=== PATIENT | male | born 1960 | race Caucasian/White ===

== ENCOUNTER → 2018-02-09 08:06 | Outpatient (CLI) | payer BC, SELFPAY ==
[2018-02-09 08:55] LABS: Hemoglobin A1C% w Est Avg Glu 6.4 % (4.0-6.0)
[2018-02-09 09:33] LABS: Creatinine Urine Random 118.7 mg/dL
[2018-02-09 09:37] LABS: Alanine Aminotransferase 41 IU/L (21-72); Albumin 3.9 g/dL (3.5-5.0); Albumin Globulin Ratio 1.6 (1.0-2.8); Alkaline Phosphatase 60 U/L (38-126); Aspartate Aminotransferase 25 IU/L (17-59); BUN Creatinine Ratio 21.3 (6-22); Bilirubin Total 0.6 mg/dL (0.2-1.3); Blood Urea Nitrogen 17 mg/dL (9-20); Calcium 9.8 mg/dL (8.4-10.2); Carbon Dioxide 28 mmol/L (22-32); Chloride 105 mmol/L (98-107); Cholesterol 154 mg/dL (140-199); Estimated Glomerular Filt Rate > 60.0 mL/min (>60); Globulin 2.4 g/dL (1.7-4.1); Glucose 138 mg/dL (70-100); HDL Cholesterol 41 mg/dL (40-60); HEMOLYSIS < 15 (0-50); LDL Cholesterol Calculated 65 mg/dL (<100); Potassium 4.5 mmol/L (3.4-5.1); Sodium 141 mmol/L (137-145); Total Protein 6.3 g/dL (6.3-8.2); Triglycerides 240 mg/dL (35-150)
[2018-02-09 09:38] LABS: Microalbumi Creatinin Ratio Ur 21.9 ug/mg CR (<30); Microalbumin Urine Random 2.6 mg/dL (0-1.6)
[2018-02-09 10:06] LABS: Prostate Specific Antigen Scrn 1.43 ng/mL (0.1-4.0)
== END ==
PROVIDERS: Family Provider Physician Assistant; PCP Physician Assistant; Visit Provider Physician Assistant
DX: I10 Essential (primary) hypertension (principal); R73.02 Impaired glucose tolerance (oral); E78.2 Mixed hyperlipidemia; Z12.5 Encounter for screening for malignant neoplasm of prostate
CPT/HCPCS: 36415; 80053; 80061; 82043; 82570; 83036; G0103

== ENCOUNTER → 2018-04-28 12:24 | Outpatient (CLI) | payer BC, SELFPAY ==
[2018-04-28 13:03] LABS: Hemoglobin A1C% w Est Avg Glu 6.7 % (4.0-6.0)
== END ==
PROVIDERS: Family Provider Physician Assistant; PCP Physician Assistant; Visit Provider Physician Assistant
DX: R73.02 Impaired glucose tolerance (oral) (principal)
CPT/HCPCS: 36415; 83036

== ENCOUNTER → 2018-09-07 11:47 | Outpatient (CLI) | payer OTHER, SELFPAY ==
[2018-09-07 13:06] LABS: Hemoglobin A1C% w Est Avg Glu 6.4 % (4.0-6.0)
== END ==
PROVIDERS: Family Provider Physician Assistant; PCP Physician Assistant; Visit Provider Physician Assistant
DX: R73.02 Impaired glucose tolerance (oral) (principal); Z83.3 Family history of diabetes mellitus
CPT/HCPCS: 36415; 83036

== ENCOUNTER → 2019-07-07 07:03 | Outpatient (CLI) | payer BC, SELFPAY ==
[2019-07-07 08:03] LABS: Hematocrit 42.3 % (41-53); Hemoglobin 14.5 g/dL (13.5-17.5)
[2019-07-07 08:14] LABS: Alanine Aminotransferase 40 IU/L (<50); Albumin 4.4 g/dL (3.5-5.0); Albumin Globulin Ratio 1.8 (1.0-2.8); Alkaline Phosphatase 59 U/L (38-126); Aspartate Aminotransferase 36 IU/L (17-59); BUN Creatinine Ratio 22.5 (6-22); Bilirubin Total 1.3 mg/dL (0.2-1.3); Blood Urea Nitrogen 18 mg/dL (9-20); Calcium 9.7 mg/dL (8.4-10.2); Carbon Dioxide 26 mmol/L (22-32); Chloride 101 mmol/L (98-107); Cholesterol 220 mg/dL (140-199); Estimated Glomerular Filt Rate > 60.0 mL/min (>60); Globulin 2.5 g/dL (1.7-4.1); Glucose 143 mg/dL (80-110); HDL Cholesterol 51 mg/dL (40-60); HEMOLYSIS < 15 (0-50); LDL Cholesterol Calculated 117 mg/dL (<100); Potassium 4.2 mmol/L (3.4-5.1); Sodium 137 mmol/L (137-145); Total Protein 6.9 g/dL (6.3-8.2); Triglycerides 259 mg/dL (35-150)
[2019-07-07 08:29] LABS: Hemoglobin A1C% w Est Avg Glu 6.5 % (4.0-6.0)
[2019-07-07 08:59] LABS: Creatinine Urine Random 171.2 mg/dL
[2019-07-07 09:03] LABS: Microalbumi Creatinin Ratio Ur 5.2 ug/mg CR (<30); Microalbumin Urine Random 0.9 mg/dL (0-1.6)
== END ==
PROVIDERS: PCP Physician Assistant; Visit Provider Physician Assistant
DX: Z01.818 Encounter for other preprocedural examination (principal); E78.2 Mixed hyperlipidemia; I10 Essential (primary) hypertension; R73.02 Impaired glucose tolerance (oral); R06.09 Other forms of dyspnea
CPT/HCPCS: 36415; 80053; 80061; 82043; 82570; 83036; 84443; 85014; 85018

== ENCOUNTER → 2019-07-15 10:52 | Outpatient (CLI) | payer BC, SELFPAY ==
--- NOTE | 2019-07-20 11:04 | PM.PFT.1 ---
Pulmonary Function Test Referral & Results Date Patient Seen: 07/15/19 Requesting provider: Jodi Hernández Results: The spirometry demonstrates an FVC of 2.06 L which is 48% of predicted. The FEV1 was measured at 1.69 L which is 52% of predicted. The FEV1/FVC ratio was 82 which is 100 a% of predicted. Following the administration of bronchodilator there was no appreciable change. Lung volumes show an SVC of 2.41 L which is 56% of predicted. The diffusing capacity was measured at 19.53 which is 69% of predicted. No hemoglobin value was provided, so no correction for potential anemia could be made, if appropriate. The maximum voluntary ventilation was reduced Interpretation: This study demonstrates moderate obstructive lung disease based on reduction in FEV1 without evidence of benefit following bronchodilator administration There is also moderate restrictive lung disease present based on reduction SVC There is also a notable reduction in diffusing capacity suggesting significant disease at the capillary alveolar level Given the degree of restrictive lung disease present with an increased FEV1/FVC ratio suggest interstitial lung disease Clinical correlation suggested
== END ==
PROVIDERS: PCP Physician Assistant; Visit Provider Physician Assistant
DX: J98.8 Other specified respiratory disorders (principal); R06.09 Other forms of dyspnea
CPT/HCPCS: 94060; 94726; 94729

== ENCOUNTER → 2019-08-15 08:38 | Outpatient (CLI) | payer BC, SELFPAY ==
--- NOTE | 2019-08-15 08:41 | DI.CT.S_ITS ---
PROCEDURE: CT CHEST WO CON INDICATIONS: Abnormal PFTs Remote hx of sarcoidosis TECHNIQUE: Noncontrast 5 mm thick sections acquired from the pulmonary apices to the posterior costophrenic angles. 1 mm lung window, 5 mm thick coronal and sagittal and 7 mm axial MIP reformats were then acquired. For radiation dose reduction, the following was used: automated exposure control, adjustment of mA and/or kV according to patient size. COMPARISON: None. FINDINGS: Image quality: Excellent. Lungs and pleura: Minimal subpleural groundglass opacity at the right lung base, (3/223). No pleural effusions or pneumothorax. Central and peripheral airways are patent and normal in caliber. Mediastinum: Heart size is normal. LAD coronary artery calcifications identified. No pericardial effusion. No mediastinal adenopathy by size criteria. No calcified nodes. Ascending thoracic aorta measures approximately 4 cm. Pulmonary arteries are within normal limits. Left common carotid artery originates off of the right brachiocephalic artery, variant. Esophagus is normal in caliber. No hiatal hernia. Bones and chest wall: No suspicious bony lesions. No vertebral body compression fractures. No axillary or supraclavicular adenopathy by size criteria. Thyroid gland is unremarkable. Abdomen: Visualized upper abdominal solid organs and bowel loops appear normal in the absence of contrast. IMPRESSION: 1. Minimal subpleural groundglass opacity in the right lower lobe. 2. No mediastinal adenopathy identified. 3. Ascending thoracic aorta aneurysm measuring 4 cm. 4. Coronary artery calcifications. Dictated by: Ernie Avina M.D. on 08/15/2019 at 10:14 Approved by: Ernie Avina M.D. on 08/15/2019 at 10:21
== END ==
PROVIDERS: PCP Physician Assistant; Referring Provider Physician Assistant; Visit Provider Physician Assistant
DX: R94.2 Abnormal results of pulmonary function studies (principal); I25.10 Atherosclerotic heart disease of native coronary artery without angina pectoris; I71.2 Thoracic aortic aneurysm, without rupture; Z86.2 Personal history of diseases of the blood and blood-forming organs and certain disorders involving the immune mechanism
CPT/HCPCS: 71250

== ENCOUNTER → 2019-08-23 14:05 | Outpatient (CLI) | payer BC, SELFPAY ==
[2019-08-23 15:08] LABS: Appearance Urine UA CLEAR; Bilirubin Urine UA NEGATIVE (NEGATIVE); Color Urine UA YELLOW; Glucose Urine UA NEGATIVE (Negative); Ketones Urine UA NEGATIVE (NEGATIVE); Leukocyte Esterase Urine UA NEGATIVE (NEGATIVE); Nitrite Urine UA NEGATIVE (Negative); Occult Blood Urine UA NEGATIVE (Negative); Protein Urine UA NEGATIVE (Negative); Urobilinogen Urine UA 0.2 E.U./dL (0.2); pH Urine UA 6.5 (4.5-8.0)
[2019-08-23 16:24] LABS: Add Manual Diff / Slide Review NO; Basophils Absolute Auto 0 /uL (0-100); Basophils Percent Auto 0.5 % (0-2); Eosinophils Absolute Auto 100 /uL (0-450); Eosinophils Percent Auto 2.1 % (2-4); Hemoglobin 14.2 g/dL (13.5-17.5); Lymphocytes Absolute Auto 1200 /uL (1100-4500); Lymphocytes Percent Auto 21.6 % (25-40); Mean Corpuscular HGB Conc 33.9 % (30-36); Mean Corpuscular Hemoglobin 31.8 PG (26-34); Mean Corpuscular Volume 93.9 fL (80-100); Monocytes Absolute Auto 500 /uL (0-900); Monocytes Percent Auto 8.3 % (3-14); Neutrophils Absolute Auto 3900 /uL (1500-7000); Neutrophils Percent Auto 67.5 % (50-75); Platelet Count 251 X10^3/uL (150-400); Red Blood Cell Count 4.48 X10^6/uL (4.5-5.9); Red Cell Distribution Width 13.2 % (11.6-14.8); White Blood Cell Count 5.8 X10^3/uL (4.5-11.0)
[2019-08-23 16:36] LABS: Alanine Aminotransferase 39 IU/L (<50); Albumin 4.5 g/dL (3.5-5.0); Albumin Globulin Ratio 1.6 (1.0-2.8); Alkaline Phosphatase 54 U/L (38-126); Aspartate Aminotransferase 36 IU/L (17-59); BUN Creatinine Ratio 26.3 (6-22); Bilirubin Total 0.8 mg/dL (0.2-1.3); Blood Urea Nitrogen 21 mg/dL (9-20); Calcium 10.1 mg/dL (8.4-10.2); Carbon Dioxide 27 mmol/L (22-32); Chloride 105 mmol/L (98-107); Cholesterol 190 mg/dL (140-199); Estimated Glomerular Filt Rate > 60.0 mL/min (>60); Globulin 2.9 g/dL (1.7-4.1); Glucose 108 mg/dL (80-110); HDL Cholesterol 49 mg/dL (40-60); HEMOLYSIS < 15 (0-50); LDL Cholesterol Calculated 81 mg/dL (<100); Potassium 3.8 mmol/L (3.4-5.1); Sodium 142 mmol/L (137-145); Total Protein 7.4 g/dL (6.3-8.2); Triglycerides 298 mg/dL (35-150)
[2019-08-23 16:38] LABS: Hemoglobin A1C% w Est Avg Glu 6.5 % (4.0-6.0)
[2019-08-23 17:22] LABS: Thyroid Stimulating Hormone 2.17 uIU/mL (0.47-4.68)
== END ==
PROVIDERS: PCP Physician Assistant
DX: I10 Essential (primary) hypertension (principal); Z83.3 Family history of diabetes mellitus; E78.2 Mixed hyperlipidemia
CPT/HCPCS: 36415; 80053; 80061; 81003; 83036; 84443; 85025

== ENCOUNTER → 2020-01-23 16:06 | Outpatient (CLI) | payer BC, SELFPAY ==
[2020-01-24 20:33] LABS: COVID19 Sendout Not Detected (Not Detect)
== END ==
PROVIDERS: PCP Physician Assistant; Visit Provider Physician Assistant
DX: Z01.812 Encounter for preprocedural laboratory examination (principal)
CPT/HCPCS: 87635

== ENCOUNTER → 2020-01-29 08:55 | Outpatient (CLI) | payer BC, SELFPAY ==
[2020-01-30 20:32] LABS: COVID19 Sendout Not Detected (Not Detect)
== END ==
PROVIDERS: PCP Physician Assistant; Visit Provider Nurse Practitioner
DX: Z11.59 Encounter for screening for other viral diseases (principal)
CPT/HCPCS: 87635

== ENCOUNTER → 2020-02-02 08:16 | Outpatient (CLI) | payer BC, SELFPAY ==
[2020-02-02 09:31] LABS: Cholesterol 158 mg/dL (140-199); HDL Cholesterol 56 mg/dL (40-60); LDL Cholesterol Calculated 55 mg/dL (<100); Triglycerides 236 mg/dL (35-150)
== END ==
PROVIDERS: PCP Family Medicine; Referring Provider Internal Medicine Cardiovascular Disease; Visit Provider Internal Medicine Cardiovascular Disease
DX: E78.5 Hyperlipidemia, unspecified (principal)
CPT/HCPCS: 36415; 80061

== ENCOUNTER → 2020-09-12 08:58 | Outpatient (CLI) | payer BC, SELFPAY ==
[2020-09-12] MEDS: COVID-19 VACC #1, MRNA(MOD) 100 MCG/0.5 ML VIAL IM (09:12)
== END ==
PROVIDERS: PCP Family Medicine; Visit Provider Internal Medicine
DX: Z23 Encounter for immunization (principal)
CPT/HCPCS: 0011A; 91301

== ENCOUNTER → 2020-10-10 08:34 | Outpatient (CLI) | payer BC, SELFPAY ==
[2020-10-10] MEDS: COVID-19 VACC #2, MRNA(MOD) 100 MCG/0.5 ML VIAL IM (08:44)
== END ==
PROVIDERS: PCP Family Medicine; Referring Provider Internal Medicine; Visit Provider Internal Medicine
DX: Z23 Encounter for immunization (principal)
CPT/HCPCS: 0012A; 91301

== ENCOUNTER → 2021-02-21 07:31 | Outpatient (CLI) | payer BC, SELFPAY ==
[2021-02-21 08:11] LABS: Add Manual Diff / Slide Review NO; Basophils Absolute Auto 0 /uL (0-100); Basophils Percent Auto 0.5 % (0-2); Eosinophils Absolute Auto 200 /uL (0-450); Eosinophils Percent Auto 2.7 % (2-4); Hematocrit 44.2 % (41-53); Hemoglobin 14.6 g/dL (13.5-17.5); Lymphocytes Absolute Auto 1500 /uL (1100-4500); Lymphocytes Percent Auto 22.4 % (25-40); Mean Corpuscular HGB Conc 32.9 % (30-36); Mean Corpuscular Hemoglobin 30.4 PG (26-34); Mean Corpuscular Volume 92.2 fL (80-100); Monocytes Absolute Auto 500 /uL (0-900); Monocytes Percent Auto 7.7 % (3-14); Neutrophils Absolute Auto 4600 /uL (1500-7000); Neutrophils Percent Auto 66.7 % (50-75); Platelet Count 265 X10^3/uL (150-400); Red Blood Cell Count 4.79 X10^6/uL (4.5-5.9); Red Cell Distribution Width 13.1 % (11.6-14.8); White Blood Cell Count 6.8 X10^3/uL (4.5-11.0)
[2021-02-21 09:02] LABS: BUN Creatinine Ratio 24.7 (6-22); Blood Urea Nitrogen 19 mg/dL (9-20); Calcium 9.6 mg/dL (8.4-10.2); Carbon Dioxide 25 mmol/L (22-32); Chloride 106 mmol/L (98-107); Cholesterol 131 mg/dL (140-199); Estimated Glomerular Filt Rate > 60.0 mL/min (>60); Glucose 165 mg/dL (80-110); HDL Cholesterol 51 mg/dL (40-60); HEMOLYSIS < 15 (0-50); LDL Cholesterol Calculated 49 mg/dL (<100); Potassium 4.5 mmol/L (3.4-5.1); Sodium 138 mmol/L (137-145); Triglycerides 153 mg/dL (35-150)
== END ==
PROVIDERS: Internal Medicine Cardiovascular Disease; PCP Family Medicine; Referring Provider Internal Medicine Nephrology; Visit Provider Internal Medicine Nephrology
DX: E78.5 Hyperlipidemia, unspecified (principal); I10 Essential (primary) hypertension
CPT/HCPCS: 36415; 80048; 80061; 85025

== ENCOUNTER → 2021-02-26 13:39 | Outpatient (CLI) | payer BC, SELFPAY ==
--- NOTE | 2021-02-26 | DI.ECHO.S_ITS ---
[place]---------[facility] +---------+ : : [address] : : : : [id number] : : : : Phone: [phone]---------+ Echocardiogram Report + + :Name: JOSE WALSH Study Date: 02/26/2021 Height: 66 in : :[facility] ReadingLocation: Weight: 165 lb : : Gender: Male BSA: 1.8 m2 : :: 1960 Age: 60 yrs BP: 162/97 mmHg: :Reason For Study: DISORDERS OF ARTERIES AND ARTERIOLS : :Ordering Physician: BO, : :ITZ Performed By: Willow Herrera : :Referring: ITZ ELDRIDGE : + + Interpretation Summary 1) Normal left ventricular thickness, size, wall motion, and systolic function (EF 55-60%). 2) Normal right ventricular size and function. 3) There is mild aortic stenosis (mean gradient 11mmHg, valve area 1.4cm2, severity ratio 0.44). 4) The ascending aorta is mild-moderately enlarged. 5) Hypertension present during the study (BP 162/97mmHg). 6) No prior Echo available for comparison. Procedure: A two-dimensional transthoracic echocardiogram with color flow and Doppler was performed. The study quality was technically adequate. There is no prior echocardiogram noted for this patient. The patient was in sinus rhythm with heart rates between 54-65 bpm during the exam. Left Ventricle: The left ventricle is normal in size and wall thickness. The ejection fraction is estimated to be 55-60%. Left ventricular systolic function appears normal without focal wall motion abnormalities. Diastolic parameters suggest probable normal left ventricular diastolic function and normal filling pressures. Right Ventricle: The right ventricle is normal in size and function. Atria: The left atrial size is normal. Right atrial size is normal. There is no Doppler evidence for an interatrial shunt. Mitral Valve: The mitral valve is normal in structure and function. There is trace mitral regurgitation. Aortic Valve: The aortic valve is not well visualized. There is mild aortic stenosis. The peak aortic velocity is 2.2 m/sec. The aortic valve mean gradient is 11 mmHg. The calculated aortic valve area is 1.4 cm2. No aortic regurgitation is present. Tricuspid Valve: The tricuspid valve is normal in structure and function. No tricuspid regurgitation. Pulmonary artery pressures cannot be estimated because of the lack of a measurable TR jet velocity but the IVC suggests a CVP of around 3 mmHg. Pulmonic Valve: The pulmonic valve leaflets are thin and pliable; valve motion is normal. There is mild pulmonic regurgitation. Great Vessels: The ascending aorta is mild-moderately enlarged. The IVC is of normal diameter and collapses greater than 50% with a sniff. This suggests a low right atrial pressure of 3 mm Hg. Pericardium/ Pleura There is no pericardial effusion. There is no pleural effusion. MMode/2D Measurements & Calculations LVIDd: 4.8 cm LVOT diam: 2.0 cm LVIDs: 3.2 cm asc Aorta Diam: 4.0 cm FS: 34.6 % Ao Arch Diam (Prox Trans): 3.0 cm IVSd: 1.0 cm LVPWd: 0.93 cm LV akins. diameter/BSA (cm/m^2): 2.6 LV sys. diameter/BSA (cm/m^2): 1.7 LA A2 area: 22.6 cm2 RA long axis: 4.9 cm LA A4 area: 17.6 cm2 RA area: 13.8 cm2 LA length (vol): 5.5 cm RA vol: 33.4 ml LA vol: 61.5 ml RA : 18.1 ml/m2 LA vol index: 33.3 ml/m2 IVC diam: 1.8 cm RVD1 (basal): 3.8 cm TAPSE: 2.4 cm Doppler Measurements & Calculations Ao V2 max: 221.5 cm/sec LVOT Max Eric: 96.9 cm/sec Ao V2 mean: 153.2 cm/sec LV V1 max P.8 mmHg Ao max P.5 mmHg LV V1 VTI: 20.7 cm Ao mean P.8 mmHg FRANNIE(I,D): 1.4 cm2 Ao V2 VTI: 46.8 cm FRANNIE(V,D): 1.4 cm2 sev ratio: 0.44 FRANNIE indexed to BSA (cm^2/m^2): 0.78 MV E max eric: 90.7 cm/sec PA V2 max: 117.6 cm/sec MV A max eric: 74.1 cm/sec PA V2 mean: 87.9 cm/sec MV E/A: 1.2 PA mean P.4 mmHg Med Peak E' Eric: 9.0 cm/sec PA pr(Accel): 27.6 mmHg E/E' med: 10.1 Lat Peak E' Eric: 9.9 cm/sec E/E' lat: 9.1 E/e' average: 9.6 MV dec time: 0.16 sec SV(LVOT): 67.7 ml Reading Physician:03:15 PM
== END ==
PROVIDERS: PCP Family Medicine; Referring Provider Internal Medicine Cardiovascular Disease; Visit Provider Internal Medicine Cardiovascular Disease
DX: I35.0 Nonrheumatic aortic (valve) stenosis (principal); I37.1 Nonrheumatic pulmonary valve insufficiency; I77.89 Other specified disorders of arteries and arterioles
CPT/HCPCS: 93306

== ENCOUNTER → 2021-09-05 08:15 | Outpatient (CLI) | payer BC, SELFPAY ==
[2021-09-05 10:36] LABS: Hemoglobin A1C% w Est Avg Glu 7.6 % (4.0-6.0)
[2021-09-05 10:44] LABS: Alanine Aminotransferase 86 IU/L (<50); Albumin 4.1 g/dL (3.5-5.0); Albumin Globulin Ratio 1.9 (1.0-2.8); Alkaline Phosphatase 53 U/L (38-126); Aspartate Aminotransferase 54 IU/L (17-59); BUN Creatinine Ratio 16.9 (6-22); Bilirubin Total 0.7 mg/dL (0.2-1.3); Blood Urea Nitrogen 12 mg/dL (9-20); Calcium 9.6 mg/dL (8.4-10.2); Carbon Dioxide 30 mmol/L (22-32); Chloride 106 mmol/L (98-107); Cholesterol 118 mg/dL (140-199); Estimated Glomerular Filt Rate > 60.0 mL/min (>60); Globulin 2.2 g/dL (1.7-4.1); Glucose 155 mg/dL (80-110); HDL Cholesterol 46 mg/dL (40-60); HEMOLYSIS < 15 (0-50); LDL Cholesterol Calculated 53 mg/dL (<100); Potassium 4.4 mmol/L (3.4-5.1); Sodium 139 mmol/L (137-145); Total Protein 6.3 g/dL (6.3-8.2); Triglycerides 97 mg/dL (35-150)
== END ==
PROVIDERS: PCP Family Medicine; Referring Provider Family Medicine; Visit Provider Family Medicine
DX: Z00.00 Encounter for general adult medical examination without abnormal findings (principal); E78.2 Mixed hyperlipidemia; Z83.3 Family history of diabetes mellitus; R73.02 Impaired glucose tolerance (oral)
CPT/HCPCS: 36415; 80053; 80061; 83036

== ENCOUNTER → 2021-09-16 08:58 | Outpatient (CLI) | payer BC, SELFPAY ==
[2021-09-16 11:21] LABS: COVID19 -Nasal RAPID Negative (Negative)
== END ==
PROVIDERS: PCP Family Medicine; Visit Provider Surgery
DX: Z01.812 Encounter for preprocedural laboratory examination (principal); Z20.822 Contact with and (suspected) exposure to COVID-19
CPT/HCPCS: 87635; C9803

== ENCOUNTER 2021-09-17 12:39 | Day surgery (SDC) | payer BC, SELFPAY ==
[2021-09-17 13:06] VITALS: BP 123/82; PULSE 82; RESP 15; TEMP 36.6; O2SAT 98; BMI 26.1
[2021-09-17] MEDS: LACTATED RINGERS 1,000 ML 200 ML IV (13:16)
--- NOTE | 2021-09-17 14:23 | PM.HP.1 ---
History of Present Illness History of Present Illness Date Patient Seen: 09/17/21 Time Patient Seen: 14:23 Chief complaint: SDC Narrative: The patient presents for colorectal sreening. They have never had any previous examination for such. No personal or family history of colon cancer. On further history denies any recent gastrointestinal symptoms. No nausea, vomiting, abdominal pain, loss of appetite, unexplained weight loss, change in bowel habits, diarrhea, constipation, melena, hematochezia, or bright red blood per rectum. Patient History Medical History Abdominal hernia Ankle fracture, left (03/2017) Kaufman's palsy Congenital heart defect Epidermal cyst Folliculitis Glucose intolerance Hyperlipemia Hypertension Osteoarthritis Preventative health care Sarcoidosis Ventral hernia Surgical History Hx of heart surgery (1957) Hx of hernia repair (1983) Hx of shoulder surgery (04/2012) Family & Social History Family History Father Essential hypertension History of diabetes mellitus, type II Mother Essential hypertension History of diabetes mellitus, type II Social History: household members spouse Tobacco & Substance use: Smoking Status Never smoker alcohol intake current Substance Use Type does not use Meds Home Medications and Allergies Home Medications Medication Instructions Recorded Confirmed Type aspirin 81 mg tablet,delayed 81 mg PO QDAY #0 02/19/17 09/03/21 History release rosuvastatin 40 mg tablet 40 mg PO DAILY #90 tab 03/19/20 09/03/21 Rx mupirocin 2 % topical ointment 1 applic TOPICAL BID #15 g 09/19/20 09/03/21 Rx hydralazine 25 mg tablet 25 mg PO TID #270 tab 04/29/21 09/03/21 Rx amlodipine 5 mg tablet (Norvasc) 5 mg PO BID #180 tab 05/13/21 09/17/21 Rx lisinopril 20 mg tablet 20 mg PO BID #180 tab 05/13/21 09/03/21 Rx sodium,potassium,mag sulfates 17.5 See Rx Instructions PO .COMPLEX 09/10/21 Rx gram-3.13 gram-1.6 gram oral soln #354 ml (Suprep Bowel Prep Kit) Allergies Allergy/AdvReac Type Severity Reaction Status Date / Time Penicillins [PENICILLINS] Allergy Intermediate RASH Verified 09/03/21 13:58 Cephalosporins Allergy Mild RASH Verified 09/03/21 13:58 [CEPHALOSPORINS] Sulfa (Sulfonamide Allergy Mild PATIENT Verified 09/03/21 13:58 Antibiotics) CAN'T [SULFA (SULFONAMIDE REMEMBER ANTIBIOTICS)] Exam Vital Signs (past 8 hours): - 09/17/21 13:06 Temperature 98 F Pulse Rate 82 Respiratory Rate 15 Blood Pressure 123/82 Pulse Oximetry 98 Oxygen Delivery Method Room Air Narrative Exam Narrative: GENERAL: Adult male in no apparent distress HEENT: No scleral icterus CV: Regular rate, no peripheral edema LUNGS: No increased work of breathing. Patient speaks in full sentences without oxygen support. ABDOMEN: Soft, non-tender, non-distended NEURO: Nonfocal, normal strength throughout, SKIN: Warm and dry Assessment & Plan Assessment & Plan narrative: The patient requires colorectal screening and colonoscopy is recommended. Technical details were discussed. Risks, benefits, alternatives explained. Risks including but not limited to myocardial infarction, aspiration, bleeding, pain, missed lesion, incomplete examination, need for further radiographic studies, colonic perforation, and need for major abdominal surgery were discussed. All questions were answered to their satisfaction, and they are in agreement with this plan.. Time Spent With Patient Critical Care time: I spent a total of [] minutes of critical care time on this patient's care today; this time is exclusive of procedural time.
--- NOTE | 2021-09-17 14:46 | PM.OP.COLON ---
Operative Date/Time/Diagnoses Date of procedure: 09/17/21 Time of procedure: 14:46 Pre-op diagnosis: Screening colonoscopy Post-op diagnosis: same Procedure & Clinicians Study performed: Colonoscopy Same procedure as scheduled: Yes Indications: Screening Surgeon: Wes Chen Procedure Notes Procedure in detail: Medications: Conscious sedation using 5 mg IV midazolam and 100 mcg IV of fentanyl The history and physical was performed/updated and the patient is ASA class is 2. The procedure was discussed in detail with the patient. Potential risks complications including infection, bleeding, missed diagnosis, perforation, need for surgery, and were explained. Their questions were answered and informed consent was obtained. Patient was brought to the procedure room and placed standard monitoring equipment. The patient's vital signs were monitored continuously throughout the entire procedure. Prior to starting time-out was performed. The patient was placed in the left lateral recumbent position. Procedural sedation was administered. Examination began with a thorough inspection of the perianal area there was no evidence of fissures, fistulae, external hemorrhoids or cutaneous malignancy. The colonoscopy scope was then placed into the anal canal and was advanced to the cecum, which was identified by the ileocecal valve, the appendiceal orifice and the confluence of the taenia. The scope was then slowly withdrawn examining colon thoroughly in all directions, irrigating it of any residual stool. FINDINGS 1. Normal healthy colon 2. No masses or polyps 3. Grade 1 internal hemorrhoids 4. Sigmoid diverticulosis The patient tolerated the procedure well. They will be discharged once criteria are met. The prep was of good/excellent quality. The withdrawl time was 6minutes. The sedation time was 15minutes. Specimen(s): none sent Complications: none Impression: Normal Post-procedure Recommendations: Colonoscopy in 10 years Disposition: same day surgery
[2021-09-17] MEDS: MIDAZOLAM 5 MG/5 ML VIAL IV (14:48)
[2021-09-17] MEDS: fentaNYL 250 MCG/5 ML INJ IV (14:48)
[2021-09-17 14:50] VITALS: BP 112/83; PULSE 68; RESP 12; TEMP 36.7; O2SAT 95
[2021-09-17 14:55] VITALS: BP 113/75; PULSE 62; RESP 12; O2SAT 94
[2021-09-17 15:00] VITALS: BP 117/72; PULSE 68; RESP 12; O2SAT 94
[2021-09-17 15:05] VITALS: BP 131/75; PULSE 75; RESP 18; O2SAT 96
[2021-09-17 15:22] VITALS: BP 129/86; PULSE 68; RESP 18; TEMP 36.6; O2SAT 98
== END 2021-09-17 15:35 | disposition home or self-care (01) ==
PROVIDERS: PCP Family Medicine; Referring Provider Surgery; Visit Provider Surgery
PROC: 0DJD8ZZ Inspection of Lower Intestinal Tract, Via Natural or Artificial Opening Endoscopic (ICD-10-PCS; CPT 45378; principal; 2021-09-17 14:30)
DX: Z12.11 Encounter for screening for malignant neoplasm of colon (principal); K57.30 Diverticulosis of large intestine without perforation or abscess without bleeding; K64.0 First degree hemorrhoids
CPT/HCPCS: 45378; 99152; J2250; J3010

== ENCOUNTER → 2022-02-10 13:36 | Outpatient (CLI) | payer BC, SELFPAY ==
--- NOTE | 2022-02-10 | DI.ECHO.S_ITS ---
[place] +---------+ [facility] +---------+ : : [address] : [address] : : : : [id number] : : : : Phone: [phone] +---------+ Echocardiogram Report + + :Name: JOSE WALSH Study Date: 02/10/2022 Height: 66.5 in: :[facility] ReadingLocation: Weight: 160 lb : : Gender: Male BSA: 1.8 m2 : :: 1960 Age: 61 yrs BP: 146/85 mmHg: :Reason For Study: AORTIC STENOSIS : :Ordering Physician: BO, : :ITZ Performed By: Willow Herrera : :Referring: ITZ ELDRIDGE : + + Interpretation Summary 1) Normal left ventricular thickness, size, wall motion, and systolic function (EF 60-65%). 2) Normal right ventricular size and function. 3) There is mild aortic stenosis (mean gradient 18mmHg, valve area 1.4cm2, severity ratio 0.35). 4) There is mild aortic regurgitation. 5) The ascending aorta is mildly enlarged at 4.0cm. 6) Compared to the Echo done 02/26/2021, mild aortic regurgitation is present. Procedure: A two-dimensional transthoracic echocardiogram with color flow and Doppler was performed. The study quality was technically adequate. Comparison is made with the echocardiogram of 02/26/2021. The patient was in sinus rhythm with heart rates between 49-65 bpm during the exam. Left Ventricle: The left ventricle is normal in size and wall thickness. The ejection fraction is estimated to be 60-65%. Left ventricular systolic function appears normal without focal wall motion abnormalities. Right Ventricle: The right ventricle is normal in size and function. Atria: The left atrial size is normal. Right atrial size is normal. There is no Doppler evidence for an interatrial shunt. Mitral Valve: The mitral valve leaflets appear mildly thickened, but open well. There is trace mitral regurgitation. Aortic Valve: The aortic valve is not well visualized. A bicuspid aortic valve cannot be excluded. There is mild aortic stenosis. The peak aortic velocity is 2.9 m/sec. The aortic valve mean gradient is 18 mmHg. The calculated aortic valve area is 1.1 cm2. There is mild aortic regurgitation. Tricuspid Valve: The tricuspid valve is normal in structure and function. There is trace tricuspid regurgitation. Pulmonary artery pressures cannot be estimated because of the lack of a measurable TR jet velocity. Pulmonic Valve: The pulmonic valve is not well visualized. There is no pulmonic valvular regurgitation. Great Vessels: The aortic root is normal size. The ascending aorta is mildly enlarged. The IVC is of normal diameter and collapses greater than 50% with a sniff. This suggests a low right atrial pressure of 3 mm Hg. Pericardium/ Pleura There is no pericardial effusion. There is no pleural effusion. MMode/2D Measurements & Calculations LVIDd: 4.7 cm LVOT diam: 2.3 cm LVIDs: 2.9 cm Ao root diam: 3.2 cm FS: 38.4 % asc Aorta Diam: 4.0 cm IVSd: 0.84 cm Ao Arch Diam (Prox Trans): 3.1 cm LVPWd: 0.99 cm LV akins. diameter/BSA (cm/m^2): 2.6 LV sys. diameter/BSA (cm/m^2): 1.6 LA A2 area: 19.7 cm2 RA long axis: 5.1 cm LA A4 area: 20.4 cm2 RA area: 16.3 cm2 LA length (vol): 5.8 cm RA vol: 44.3 ml LA vol: 59.1 ml RA : 24.2 ml/m2 LA vol index: 32.3 ml/m2 IVC diam: 2.0 cm RVD1 (basal): 3.7 cm RVD2 (mid): 2.9 cm TAPSE: 2.4 cm Doppler Measurements & Calculations Ao V2 max: 293.8 cm/sec LVOT Max Eric: 110.3 cm/sec Ao V2 mean: 197.7 cm/sec LV V1 max P.9 mmHg Ao max P.5 mmHg LV V1 VTI: 22.9 cm Ao mean P.1 mmHg FRANNIE(I,D): 1.4 cm2 Ao V2 VTI: 64.7 cm FRANNIE(V,D): 1.5 cm2 sev ratio: 0.35 FRANNIE indexed to BSA (cm^2/m^2): 0.77 AI P1/2t: 855.7 msec AI dec slope: 162.3 cm/sec2 MV E max eric: 96.1 cm/sec PA V2 max: 130.3 cm/sec MV A max eric: 74.1 cm/sec PA V2 mean: 83.5 cm/sec MV E/A: 1.3 PA mean P.3 mmHg Med Peak E' Eric: 8.4 cm/sec PA pr(Accel): 24.2 mmHg E/E' med: 11.4 Lat Peak E' Eric: 10.6 cm/sec E/E' lat: 9.1 E/e' average: 10.2 MV dec time: 0.19 sec SV(LVOT): 91.6 ml Reading Physician:04:33 PM
== END ==
PROVIDERS: PCP Family Medicine; Referring Provider Internal Medicine Cardiovascular Disease; Visit Provider Internal Medicine Cardiovascular Disease
DX: I77.89 Other specified disorders of arteries and arterioles (principal); I35.0 Nonrheumatic aortic (valve) stenosis
CPT/HCPCS: 93306

== ENCOUNTER → 2022-07-29 07:39 | Outpatient (CLI) | payer BC, SELFPAY ==
[2022-07-29 08:38] LABS: Add Manual Diff / Slide Review NO; Basophils Absolute Auto 0 /uL (0-100); Basophils Percent Auto 0.5 % (0-2); Eosinophils Absolute Auto 200 /uL (0-450); Hematocrit 41.9 % (41-53); Hemoglobin 14.1 g/dL (13.5-17.5); Lymphocytes Absolute Auto 1600 /uL (1100-4500); Lymphocytes Percent Auto 25.9 % (25-40); Mean Corpuscular HGB Conc 33.6 % (30-36); Mean Corpuscular Hemoglobin 30.8 PG (26-34); Mean Corpuscular Volume 91.5 fL (80-100); Monocytes Absolute Auto 500 /uL (0-900); Monocytes Percent Auto 8.2 % (3-14); Neutrophils Absolute Auto 3800 /uL (1500-7000); Neutrophils Percent Auto 62.4 % (50-75); Platelet Count 257 X10^3/uL (150-400); Red Blood Cell Count 4.58 X10^6/uL (4.5-5.9); Red Cell Distribution Width 13.4 % (11.6-14.8); White Blood Cell Count 6.1 X10^3/uL (4.5-11.0)
[2022-07-29 08:45] LABS: Hemoglobin A1C% w Est Avg Glu 7.6 % (4.0-6.0)
[2022-07-29 08:51] LABS: Alanine Aminotransferase 34 IU/L (<50); Albumin 4.4 g/dL (3.5-5.0); Albumin Globulin Ratio 1.8 (1.0-2.8); Alkaline Phosphatase 62 U/L (38-126); Aspartate Aminotransferase 34 IU/L (17-59); BUN Creatinine Ratio 18.7 (6-22); Bilirubin Total 1.2 mg/dL (0.2-1.3); Blood Urea Nitrogen 14 mg/dL (9-20); Calcium 9.2 mg/dL (8.4-10.2); Carbon Dioxide 27 mmol/L (22-32); Chloride 103 mmol/L (98-107); Cholesterol 153 mg/dL (140-199); Estimated Glomerular Filt Rate > 60 mL/min (>60); Globulin 2.5 g/dL (1.7-4.1); Glucose 157 mg/dL (80-110); HDL Cholesterol 57 mg/dL (40-60); HEMOLYSIS < 15 (0-50); LDL Cholesterol Calculated 69 mg/dL (<100); Potassium 4.1 mmol/L (3.4-5.1); Sodium 139 mmol/L (137-145); Total Protein 6.9 g/dL (6.3-8.2); Triglycerides 136 mg/dL (35-150)
[2022-07-29 09:20] LABS: Prostate Specific Antigen Scrn 2.33 ng/mL (0.1-4.0)
[2022-07-29 09:21] LABS: TSH w/ Reflex to FT4 3.79 uIU/mL (0.47-4.68)
== END ==
PROVIDERS: PCP Family Medicine; Referring Provider Family Medicine; Visit Provider Family Medicine
DX: E11.9 Type 2 diabetes mellitus without complications (principal); E78.2 Mixed hyperlipidemia; I10 Essential (primary) hypertension; Z12.5 Encounter for screening for malignant neoplasm of prostate
CPT/HCPCS: 36415; 80053; 80061; 83036; 84443; 85025; G0103

== ENCOUNTER → 2022-11-26 08:18 | Outpatient (CLI) | payer BC, SELFPAY ==
[2022-11-26 09:04] LABS: Alanine Aminotransferase 33 IU/L (<50); Albumin 4.1 g/dL (3.5-5.0); Alkaline Phosphatase 52 U/L (38-126); Aspartate Aminotransferase 29 IU/L (17-59); BUN Creatinine Ratio 23.5 (6-22); Bilirubin Total 0.4 mg/dL (0.2-1.3); Blood Urea Nitrogen 19 mg/dL (9-20); Calcium 8.7 mg/dL (8.4-10.2); Carbon Dioxide 27 mmol/L (22-32); Chloride 107 mmol/L (98-107); Estimated Glomerular Filt Rate > 60 mL/min (>60); Globulin 2.1 g/dL (1.7-4.1); Glucose 149 mg/dL (80-110); HEMOLYSIS < 15 (0-50); Potassium 4.3 mmol/L (3.4-5.1); Sodium 140 mmol/L (137-145); Total Protein 6.2 g/dL (6.3-8.2)
[2022-11-27 08:13] LABS: x Labcorp Estim. Avg Glu (eAG) 160 mg/dL (.); x Labcorp Hemoglobin A1c 7.2 % (4.8-5.6)
== END ==
PROVIDERS: PCP Family Medicine; Referring Provider Family Medicine; Visit Provider Family Medicine
DX: E11.9 Type 2 diabetes mellitus without complications (principal); Z86.2 Personal history of diseases of the blood and blood-forming organs and certain disorders involving the immune mechanism; I10 Essential (primary) hypertension; E78.2 Mixed hyperlipidemia
CPT/HCPCS: 80053; 83036

== ENCOUNTER → 2022-12-04 12:38 | Outpatient (CLI) | payer BC, SELFPAY ==
--- NOTE | 2022-12-04 12:38 | DI.RAD.S_ITS ---
PROCEDURE: XR SHOULDER LT MIN 2V INDICATIONS: Progressive loss of range of motion, left shoulder TECHNIQUE: 3 views of the shoulder were acquired. COMPARISON: None. FINDINGS: Bones: No fractures or dislocations. No suspicious bony lesions. Visualized ribs appear intact. Soft tissues: No suspicious soft tissue calcifications. IMPRESSION: Unremarkable left shoulder radiographs Approved by: Barney Jennings M.D. on 12/04/2022 at 16:08
== END ==
PROVIDERS: PCP Family Medicine; Referring Provider Family Medicine; Visit Provider Family Medicine
DX: M75.02 Adhesive capsulitis of left shoulder (principal)
CPT/HCPCS: 73030

== ENCOUNTER → 2023-04-03 08:00 | Outpatient (CLI) | payer MEDICARE, OTHER, SELFPAY ==
--- NOTE | 2023-04-03 08:03 | DI.ECHO.S_ITS ---
[place] +---------+ Hospital +---------+ : : [address] : : : : [id number] : : : : Phone: [phone] +---------+ Echocardiogram Report + + :Name: JOSE WALSH Study Date: 04/03/2023 Height: 66 in : :[facility] ReadingLocation: Weight: 165 lb : : Gender: Male BSA: 1.8 m2 : :: 1960 Age: 63 yrs BP: 168/85 mmHg: :Ordering Physician: BO, : :ITZ Performed By: Katy Tay : :Referring: ITZ ELDRIDGE : + + Interpretation Summary 1) Normal left ventricular thickness, size, wall motion, and systolic function (EF 60-65%). 2) Normal right ventricular size and function. 3) There is moderate aortic stenosis (mean gradient 26mmHg, valve area 1.2cm2, severity ratio 0.31). 4) There is mild aortic regurgitation. 5) Compared to the Echo done 02/10/2022, aortic stenosis has progressed from mild to moderate on this study. Procedure: A two-dimensional transthoracic echocardiogram with color flow and Doppler was performed. The study quality was technically adequate. Comparison is made with the echocardiogram of 02/10/2022. The patient was in normal sinus rhythm during the exam. Left Ventricle: The left ventricle is normal in size and wall thickness. The ejection fraction is estimated to be 60-65%. Left ventricular systolic function appears normal without focal wall motion abnormalities. Diastolic parameters suggest a relaxation abnormality of the left ventricle, consistent with probable normal filling pressures. Right Ventricle: The right ventricle is normal in size and function. Atria: The left atrial size is normal. Right atrial size is normal. There is no Doppler evidence for an interatrial shunt. Mitral Valve: The mitral valve is normal. There is no mitral valve stenosis. There is trace mitral regurgitation. Aortic Valve: The aortic valve is not well visualized. There is moderate aortic stenosis. The peak aortic velocity is 3.41 m/sec. The aortic valve mean gradient is 26 mmHg. There is mild aortic regurgitation. Tricuspid Valve: The tricuspid valve is normal. There is no tricuspid stenosis. No tricuspid regurgitation. Pulmonic Valve: The pulmonic valve is not well visualized. There is no pulmonic valvular stenosis. There is trace pulmonic regurgitation. Great Vessels: The aortic root is not well visualized. The ascending aorta is normal in size. The pulmonary artery is normal size. The IVC is of normal diameter and collapses greater than 50% with a sniff. This suggests a low right atrial pressure of 3 mm Hg. Pericardium/ Pleura There is no pericardial effusion. There is no pleural effusion. MMode/2D Measurements & Calculations LVIDd: 4.6 cm LVOT diam: 2.2 cm LVIDs: 3.1 cm asc Aorta Diam: 2.5 cm FS: 32.6 % IVSd: 1.0 cm LVPWd: 0.90 cm LV akins. diameter/BSA (cm/m^2): 2.5 LV sys. diameter/BSA (cm/m^2): 1.7 LA A4 area: 15.2 cm2 RA long axis: 4.6 cm RA area: 12.4 cm2 RA vol: 28.3 ml RA : 15.3 ml/m2 RVD1 (basal): 3.2 cm LVLs ap4: 6.1 cm LVLd ap2: 7.3 cm TAPSE_phl: 2.4 cm LVLs ap2: 5.9 cm Doppler Measurements & Calculations Ao V2 max: 328.8 cm/sec LVOT Max Eric: 108.6 cm/sec Ao V2 mean: 226.6 cm/sec LV V1 max P.7 mmHg Ao max P.0 mmHg LV V1 VTI: 22.4 cm Ao mean P.0 mmHg FRANNIE(I,D): 1.2 cm2 Ao V2 VTI: 72.8 cm FRANNIE(V,D): 1.3 cm2 sev ratio: 0.31 FRANNIE indexed to BSA (cm^2/m^2): 0.66 MV E max eric: 98.1 cm/sec PA V2 max: 140.0 cm/sec MV A max eric: 87.4 cm/sec PA V2 mean: 88.9 cm/sec MV E/A: 1.1 PA mean P.0 mmHg Med Peak E' Eric: 7.9 cm/sec PA pr(Accel): 45.7 mmHg E/E' med: 12.5 Lat Peak E' Eric: 11.3 cm/sec E/E' lat: 8.7 E/e' average: 10.6 MV dec time: 0.19 sec SV(LVOT): 88.6 ml AV VR_phl: 0.33 FRANNIE(VTI)/BSA_phl: 0.48 Reading Physician:04:02 PM
== END ==
PROVIDERS: PCP Family Medicine; Referring Provider Internal Medicine Cardiovascular Disease; Visit Provider Internal Medicine Cardiovascular Disease
DX: I35.0 Nonrheumatic aortic (valve) stenosis (principal); I77.89 Other specified disorders of arteries and arterioles; I35.1 Nonrheumatic aortic (valve) insufficiency
CPT/HCPCS: 93306

== ENCOUNTER → 2023-04-22 07:54 | Outpatient (CLI) | payer MEDICARE, OTHER, SELFPAY ==
[2023-04-22 08:48] LABS: Alanine Aminotransferase 26 IU/L (<50); Albumin 4.2 g/dL (3.5-5.0); Albumin Globulin Ratio 1.9 (1.0-2.8); Alkaline Phosphatase 57 U/L (38-126); Aspartate Aminotransferase 24 IU/L (17-59); Bilirubin Total 0.7 mg/dL (0.2-1.3); Blood Urea Nitrogen 18 mg/dL (9-20); Calcium 9.8 mg/dL (8.4-10.2); Carbon Dioxide 28 mmol/L (22-32); Chloride 104 mmol/L (98-107); Estimated Glomerular Filt Rate > 60 mL/min (>60); Globulin 2.2 g/dL (1.7-4.1); Glucose 171 mg/dL (80-110); HEMOLYSIS < 15 (0-50); Potassium 4.4 mmol/L (3.4-5.1); Sodium 138 mmol/L (137-145); Total Protein 6.4 g/dL (6.3-8.2)
[2023-04-22 08:49] LABS: Hemoglobin A1C% w Est Avg Glu 7.6 % (4.0-6.0)
[2023-04-22 12:05] LABS: Add Manual Diff / Slide Review NO; Basophils Absolute Auto 0 /uL (0-100); Basophils Percent Auto 0.5 % (0-2); Eosinophils Absolute Auto 200 /uL (0-450); Eosinophils Percent Auto 2.5 % (2-4); Hematocrit 44.4 % (41-53); Hemoglobin 14.6 g/dL (13.5-17.5); Lymphocytes Absolute Auto 2000 /uL (1100-4500); Lymphocytes Percent Auto 27.2 % (25-40); Mean Corpuscular Hemoglobin 30.2 PG (26-34); Mean Corpuscular Volume 91.7 fL (80-100); Monocytes Absolute Auto 500 /uL (0-900); Monocytes Percent Auto 6.6 % (3-14); Neutrophils Absolute Auto 4600 /uL (1500-7000); Neutrophils Percent Auto 63.2 % (50-75); Platelet Count 242 X10^3/uL (150-400); Red Blood Cell Count 4.85 X10^6/uL (4.5-5.9); Red Cell Distribution Width 13.2 % (11.6-14.8); White Blood Cell Count 7.3 X10^3/uL (4.5-11.0)
[2023-04-22 12:30] LABS: Cholesterol 133 mg/dL (140-199); HDL Cholesterol 53 mg/dL (40-60); LDL Cholesterol Calculated 37 mg/dL (<100); Triglycerides 217 mg/dL (35-150)
== END ==
PROVIDERS: PCP Family Medicine; Referring Provider Family Medicine; Visit Provider Family Medicine
DX: E11.9 Type 2 diabetes mellitus without complications (principal); I10 Essential (primary) hypertension; E78.2 Mixed hyperlipidemia
CPT/HCPCS: 36415; 80053; 80061; 83036; 85025

== ENCOUNTER → 2023-05-04 07:40 | Outpatient (CLI) | payer MEDICARE, OTHER, SELFPAY ==
[2023-05-04 08:41] LABS: COVID-19 CEPHEID 4-PLEX PCR Negative (Negative); Influenza A - CEPHEID Flu A NEGATIVE (NEGATIVE); Influenza B - CEPHEID Flu B NEGATIVE (NEGATIVE); Respiratory Syncytial Virus Negative (Negative)
== END ==
PROVIDERS: PCP Family Medicine; Visit Provider Nurse Practitioner Family
DX: R05.1 Acute cough (principal); J34.89 Other specified disorders of nose and nasal sinuses
CPT/HCPCS: 0241U

== ENCOUNTER → 2023-11-26 07:30 | Outpatient (CLI) | payer MEDICARE, OTHER, SELFPAY ==
[2023-11-26 08:17] LABS: Hemoglobin A1C% w Est Avg Glu 6.5 % (4.0-6.0)
[2023-11-26 08:28] LABS: Alanine Aminotransferase 27 IU/L (<50); Albumin 4.3 g/dL (3.5-5.0); Albumin Globulin Ratio 2.3 (1.0-2.8); Alkaline Phosphatase 58 U/L (38-126); Aspartate Aminotransferase 30 IU/L (17-59); BUN Creatinine Ratio 24.3 (6-22); Bilirubin Total 0.9 mg/dL (0.2-1.3); Blood Urea Nitrogen 18 mg/dL (9-20); Calcium 9.3 mg/dL (8.4-10.2); Carbon Dioxide 26 mmol/L (22-32); Chloride 108 mmol/L (98-107); Cholesterol 160 mg/dL (140-199); Estimated Glomerular Filt Rate > 60 mL/min (>60); Globulin 1.9 g/dL (1.7-4.1); Glucose 136 mg/dL (80-110); HDL Cholesterol 66 mg/dL (40-60); HEMOLYSIS < 15 (0-50); LDL Cholesterol Calculated 64 mg/dL (<100); Potassium 4.4 mmol/L (3.4-5.1); Sodium 139 mmol/L (137-145); Total Protein 6.2 g/dL (6.3-8.2); Triglycerides 150 mg/dL (35-150)
== END ==
PROVIDERS: PCP Family Medicine; Referring Provider Family Medicine; Visit Provider Family Medicine
DX: E11.9 Type 2 diabetes mellitus without complications (principal); I10 Essential (primary) hypertension; E78.2 Mixed hyperlipidemia
CPT/HCPCS: 36415; 80053; 80061; 83036

== ENCOUNTER → 2024-04-27 07:08 | Outpatient (CLI) | payer MEDICARE, OTHER, SELFPAY ==
[2024-04-27 08:20] LABS: Hematocrit 42.8 % (41-53); Hemoglobin 14.5 g/dL (13.5-17.5); Mean Corpuscular HGB Conc 33.8 % (30-36); Mean Corpuscular Volume 94.8 fL (80-100); Platelet Count 227 X10^3/uL (150-400); Red Blood Cell Count 4.52 X10^6/uL (4.5-5.9); Red Cell Distribution Width 13.2 % (11.6-14.8); White Blood Cell Count 6.6 X10^3/uL (4.5-11.0)
[2024-04-27 08:46] LABS: BUN Creatinine Ratio 20.3 (6-22); Blood Urea Nitrogen 16 mg/dL (9-20); Calcium 9.4 mg/dL (8.4-10.2); Carbon Dioxide 26 mmol/L (22-32); Chloride 107 mmol/L (98-107); Cholesterol 135 mg/dL (140-199); Estimated Glomerular Filt Rate > 60 mL/min (>60); Glucose 146 mg/dL (80-110); HDL Cholesterol 59 mg/dL (40-60); HEMOLYSIS < 15 (0-50); LDL Cholesterol Calculated 47 mg/dL (<100); Potassium 4.4 mmol/L (3.4-5.1); Sodium 139 mmol/L (137-145); Triglycerides 145 mg/dL (35-150)
== END ==
PROVIDERS: PCP Family Medicine; Referring Provider Internal Medicine Cardiovascular Disease; Visit Provider Internal Medicine Cardiovascular Disease
DX: E78.5 Hyperlipidemia, unspecified (principal); I10 Essential (primary) hypertension
CPT/HCPCS: 36415; 80048; 80061; 85027

== ENCOUNTER → 2024-05-05 14:48 | Outpatient (CLI) | payer MEDICARE, OTHER, SELFPAY ==
--- NOTE | 2024-05-05 | DI.ECHO.S_ITS ---
[facility] : : [address] : : [place] : : [id number] : : Phone: [phone] Echocardiogram Report + + :Name: JOSE WALSH Study Date: 05/05/2024 Height: 67 in : :Hospital ReadingLocation: Weight: 156 lb : : Gender: Male BSA: 1.8 m2 : :: 1960 Age: 64 yrs BP: 157/75 mmHg: :Reason For Study: AORTIC VALVE STENOSIS : :Ordering Physician: BO, : :ITZ Performed By: Timur Duarte : :Referring: ITZ ELDRIDGE : + + Interpretation Summary 1) Normal left ventricular thickness, size, wall motion, and systolic function (EF 60-65%). 2) Normal right ventricular size and function. 3) There is moderate aortic stenosis (valve area 1.3cm2, mean gradient 33mmHg, severity ratio 0.35). 4) There is moderate aortic regurgitation. 5) Compared to the Echo done 04/03/2023, aortic regurgitation has increased from mild to moderate on this study. Procedure: A two-dimensional transthoracic echocardiogram with color flow and Doppler was performed. The study quality was technically adequate. Comparison is made with the echocardiogram of 04/03/2023. The patient was in normal sinus rhythm during the exam. Left Ventricle: The left ventricle is normal in size. Left ventricular wall thickness is mildly increased. There is no ventricular septal defect visualized. The ejection fraction is estimated to be 60-65%. There are no focal wall motion abnormalities. Right Ventricle: The right ventricle is normal in size and function. Atria: The left atrium is moderately dilated. Right atrial size is normal. There is no Doppler evidence for an interatrial shunt. Mitral Valve: The mitral valve is normal in structure and function. There is mild mitral regurgitation. Aortic Valve: The aortic valve is trileaflet. The aortic valve is severely calcified. Heavily calcified immobile LCC. There is moderate aortic stenosis. The peak aortic velocity is 3.96 m/sec. The aortic valve mean gradient is 32.6 mmHg. There is moderate aortic regurgitation. Tricuspid Valve: The tricuspid valve is normal in structure and function. No tricuspid regurgitation. Pulmonic Valve: The pulmonic valve is normal in structure and function. There is trace pulmonic regurgitation. Great Vessels: The aortic root is mildly dilated. The dimensions of the ascending aorta are normal. The pulmonary artery is normal size. The IVC is of normal diameter and collapses greater than 50% with a sniff. This suggests a low right atrial pressure of 3 mm Hg. Pericardium/ Pleura There is no pericardial effusion. There is no pleural effusion. MMode/2D Measurements & Calculations LVIDd: 4.8 cm LVOT diam: 2.2 cm LVIDs: 3.3 cm Ao root diam: 3.7 cm FS: 32.1 % Ao Arch Diam (Prox Trans): 2.7 cm EPSS: 0.75 cm IVSd: 1.2 cm LVPWd: 1.1 cm LV akins. diameter/BSA (cm/m^2): 2.6 LV sys. diameter/BSA (cm/m^2): 1.8 LA A2 area: 22.6 cm2 RA long axis: 5.1 cm LA A4 area: 21.8 cm2 RA area: 16.4 cm2 LA length (vol): 5.4 cm RA vol: 45.0 ml LA vol: 77.1 ml RA : 24.7 ml/m2 LA vol index: 42.4 ml/m2 IVC diam: 1.8 cm RVD1 (basal): 3.7 cm RVD2 (mid): 2.9 cm TAPSE: 2.7 cm Doppler Measurements & Calculations Ao V2 max: 395.8 cm/sec LVOT Max Eric: 125.7 cm/sec Ao V2 mean: 266.5 cm/sec LV V1 max P.3 mmHg Ao max P.7 mmHg LV V1 VTI: 30.8 cm Ao mean P.6 mmHg FRANNIE(I,D): 1.3 cm2 Ao V2 VTI: 88.3 cm FRANNIE(V,D): 1.2 cm2 sev ratio: 0.35 FRANNIE indexed to BSA (cm^2/m^2): 0.71 AI P1/2t: 399.8 msec AI dec slope: 453.7 cm/sec2 MV E max eric: 85.3 cm/sec PA V2 max: 113.1 cm/sec MV A max eric: 70.8 cm/sec PA V2 mean: 71.2 cm/sec MV E/A: 1.2 PA mean P.4 mmHg Med Peak E' Eric: 6.9 cm/sec PA pr(Accel): 15.6 mmHg E/E' med: 12.3 Lat Peak E' Eric: 8.9 cm/sec E/E' lat: 9.6 E/e' average: 10.9 MV dec time: 0.16 sec SV(LVOT): 113.8 ml Reading Physician:09:12 AM
== END ==
PROVIDERS: PCP Family Medicine; Referring Provider Internal Medicine Cardiovascular Disease; Visit Provider Internal Medicine Cardiovascular Disease
DX: I08.0 Rheumatic disorders of both mitral and aortic valves (principal); I77.810 Thoracic aortic ectasia
CPT/HCPCS: 93306

== ENCOUNTER → 2024-06-14 10:45 | Outpatient (CLI) | payer MEDICARE, OTHER, SELFPAY ==
[2024-06-14 12:59] LABS: Alanine Aminotransferase 34 IU/L (<50); Albumin 4.7 g/dL (3.5-5.0); Albumin Globulin Ratio 2.1 (1.0-2.8); Alkaline Phosphatase 66 U/L (38-126); Aspartate Aminotransferase 36 IU/L (17-59); BUN Creatinine Ratio 19.8 (6-22); Bilirubin Total 1.1 mg/dL (0.2-1.3); Blood Urea Nitrogen 16 mg/dL (9-20); Calcium 9.6 mg/dL (8.4-10.2); Carbon Dioxide 26 mmol/L (22-32); Chloride 104 mmol/L (98-107); Estimated Glomerular Filt Rate > 60 mL/min (>60); Globulin 2.2 g/dL (1.7-4.1); Glucose 136 mg/dL (80-110); HEMOLYSIS < 15 (0-50); Potassium 4.4 mmol/L (3.4-5.1); Sodium 138 mmol/L (137-145); Total Protein 6.9 g/dL (6.3-8.2)
[2024-06-14 13:01] LABS: Hemoglobin A1C% w Est Avg Glu 6.4 % (4.0-6.0)
== END ==
PROVIDERS: PCP Family Medicine; Referring Provider Family Medicine; Visit Provider Family Medicine
DX: E11.9 Type 2 diabetes mellitus without complications (principal); E78.2 Mixed hyperlipidemia; I10 Essential (primary) hypertension
CPT/HCPCS: 36415; 80053; 83036

== ENCOUNTER 2024-10-09 07:29 | Emergency (ER) | payer MEDICARE, OTHER, SELFPAY ==
[2024-10-09 07:45] VITALS: BP 159/72; PULSE 75; RESP 18; TEMP 36.7; O2SAT 99; BMI 25.2
--- NOTE | 2024-10-09 08:00 | ED.EYEPROB ---
HPI - Eye Problem General Chief complaint: Eye Problems Stated complaint: left eye irritation Time Seen by Provider: 10/09/24 07:55 Source: patient Mode of arrival: Ambulatory History of Present Illness HPI Narrative: 64-year-old gentleman HTN, HLD, DM was was getting up on his ladder to work on his roof yesterday when he noticed something got into his left eye. His left eye feels irritated watery teary and read at this time despite irrigating it with water multiple times yesterday. He only wears reading glasses no contacts. He states that when he opens his eye moves in all directions he feels there is something moving in there. Other than what is stated 14 point review of system is negative. Related Data Home Medications Medication Instructions Recorded Confirmed aspirin 81 mg tablet,delayed 81 mg PO QDAY ##0 02/19/17 06/17/24 release Previous Rx's Medication Instructions Recorded metformin 1,000 mg tablet 500 mg (1/2 x 1,000 mg) PO BID 08/01/22 #180 tabs rosuvastatin 20 mg tablet 20 mg PO DAILY #90 tabs 05/05/23 amlodipine 5 mg tablet See Rx Instructions .Route 02/02/24 .COMPLEX #180 tabs lisinopril 10 mg tablet 10 mg PO BID #180 tabs 02/02/24 hydralazine 25 mg tablet See Rx Instructions .Route 05/05/24 .COMPLEX #180 tabs empagliflozin 25 mg tablet 25 mg PO DAILY #90 tabs 06/10/24 (Jardiance) Allergies Allergy/AdvReac Type Severity Reaction Status Date / Time Penicillins [PENICILLINS] Allergy Intermediate RASH Verified 06/17/24 11:12 Cephalosporins Allergy Mild RASH Verified 06/17/24 11:12 [CEPHALOSPORINS] Sulfa (Sulfonamide Allergy Mild PATIENT Verified 06/17/24 11:12 Antibiotics) CAN'T [SULFA (SULFONAMIDE REMEMBER ANTIBIOTICS)] Review of Systems Review of Systems ROS Unobtainable: All systems reviewed & are unremarkable except as noted in HPI and below Patient History Medical History Aortic stenosis Adhesive capsulitis of left shoulder Type 2 diabetes mellitus Preventative health care Folliculitis Osteoarthritis Ventral hernia Epidermal cyst Glucose intolerance Ankle fracture, left (03/2017) Congenital heart defect Kaufman's palsy Abdominal hernia Sarcoidosis Hyperlipemia Hypertension Surgical History Hx of heart surgery (1957) Hx of hernia repair (1983) Hx of shoulder surgery (04/2012) Family History Father Essential hypertension History of diabetes mellitus, type II Mother Essential hypertension History of diabetes mellitus, type II Social History household members: spouse second hand exposure: No alcohol intake: current substance use type: does not use tobacco type: smokeless tobacco Exam Narrative Exam Narrative: GENERAL: [81] year old patient appears stated age. Well-developed patient, in mild distress. HEAD: Atraumatic. Normocephalic. EYES: Pupils equal round and reactive. Extraocular motions intact. No scleral icterus. L eye injected, watery discharge ENT: Nose without bleeding, purulent drainage. Throat without erythema, tonsillar hypertrophy or exudate. Airway patent. NECK: Trachea midline. Non tender EXTREMITIES: No edema or joint tenderness. BACK: Nontender without deformity or crepitance. No flank tenderness. NEURO: AOx3. SKIN: No rash or erythema of visible areas Initial Vital Signs Initial Vital Signs: Vital Signs Temperature 98.1 F 10/09/24 07:45 Pulse Rate 75 10/09/24 07:45 Respiratory Rate 18 10/09/24 07:45 Blood Pressure 159/72 H 10/09/24 07:45 Pulse Oximetry 99 10/09/24 07:45 Oxygen Delivery Method Room Air 10/09/24 07:45 Course Orders Ordered: Discontinued Medications Fluorescein Sodium (Fluorescein 1 Mg Strip) 1 mg EYE-LEFT NOW ONE Stop: 10/09/24 08:01 Last Admin: 10/09/24 08:03 Dose: 1 mg Documented By: ELADIO Ofloxacin (Ofloxacin 0.3% Ophth 5 Ml) 1 drops EYE-LEFT NOW ONE Stop: 10/09/24 08:14 Last Admin: 10/09/24 08:28 Dose: 1 drop Documented By: ELADIO Proparacaine HCl (Proparacaine 0.5% Ophth Ericka) 1 drops EYE-LEFT NOW ONE Stop: 10/09/24 08:01 Last Admin: 10/09/24 08:03 Dose: 1 drop Documented By: ELADIO Vital Signs Vital signs: Vital Signs - 8 hr 10/09/24 07:45 Temperature 98.1 F Pulse Rate 75 Respiratory Rate 18 Blood Pressure 159/72 H Pulse Oximetry 99 Oxygen Delivery Method Room Air MDM - Eye Problem Differential Diagnosis Differential diagnosis: Likely corneal abrasion Condition is:: Resolving MDM Narrative Medical decision making narrative: One drop of proparacaine fluorescein strip and Wood's lamp used with uptake at the 7 o'clock position consistent with corneal abrasion no other foreign body identified. Differential diagnosis includes corneal abrasion foreign body, blepharitis, iritis. Patient will follow up with eye doctor on Thursday this week. Pt given ofloxacin eyedrops prescription at discharge. Vital signs, nurse triage note, medication list, previous ER records including imaging studies all reviewed. Discharge Plan Departure Patient Disposition: Home Clinical Impression: Abrasion, corneal Qualifiers: Encounter type: initial encounter Laterality: left Qualified Code(s): S05.02XA - Injury of conjunctiva and corneal abrasion without foreign body, left eye, initial encounter Instructions: DI for Corneal Abrasion Activity Restrictions/Additional Instructions: Return with new or worsening symptoms. Take medicines as directed with antibiotic eye drop. Follow up with eye doctor this week call for appointment on Thursday. Prescriptions: No Action aspirin 81 MG tablet,delayed release (DR/EC) 81 mg PO QDAY Qty: 0 lisinopril 10 mg tablet 10 mg PO BID Qty: 180 3RF amlodipine 5 mg tablet See Rx Instructions .ROUTE .COMPLEX Qty: 180 3RF Dose Instruction: TAKE 1 TABLET BY MOUTH TWICE DAILY Rx Instructions: TAKE 1 TABLET BY MOUTH TWICE DAILY hydralazine 25 mg tablet See Rx Instructions .ROUTE .COMPLEX Qty: 180 1RF Dose Instruction: TAKE 1 TABLET BY MOUTH THREE TIMES DAILY Rx Instructions: TAKE 1 TABLET BY MOUTH TWO TIMES DAILY Jardiance 25 mg tablet 25 mg PO DAILY Qty: 90 1RF Rx Instructions: 1 pill per day metformin 1,000 mg tablet 500 mg PO BID Qty: 180 3RF rosuvastatin 20 mg tablet 20 mg PO DAILY Qty: 90 3RF Referrals: Eric Griffin DO [Primary Care Provider] - Stand Alone Forms: Patient Portal/API/Survey
[2024-10-09] MEDS: FLUORESCEIN 1 MG STRIP EYE-LEFT (08:03)
[2024-10-09] MEDS: PROPARACAINE 0.5% OPHTH SOL 1 DROPS EYE-LEFT (08:03)
[2024-10-09] MEDS: OFLOXACIN 0.3% OPHTH 5 ML 1 DROPS EYE-LEFT (08:28)
[2024-10-09 08:45] VITALS: PULSE 70; RESP 17; O2SAT 98
== END 2024-10-09 08:47 | disposition home or self-care (01) ==
PROVIDERS: Emergency Provider Family Medicine; PCP Family Medicine
DX: S05.02XA Injury of conjunctiva and corneal abrasion without foreign body, left eye, initial encounter (principal); W44.9XXA Unspecified foreign body entering into or through a natural orifice, initial encounter
CPT/HCPCS: 99282

== ENCOUNTER → 2024-11-01 14:25 | Outpatient (CLI) | payer MEDICARE, OTHER, SELFPAY ==
--- NOTE | 2024-11-01 14:28 | DI.RAD.S_ITS ---
PROCEDURE: XR SHOULDER LT MIN 2V INDICATIONS: left shoulder pain and elevation s/p fall 10/11/24 TECHNIQUE: 3 views of the shoulder were acquired. COMPARISON: [facility], CR, XR SHOULDER LT MIN 2V, 12/04/2022, 12:44. FINDINGS: Bones: No fractures or dislocations. Superior migration of left humeral head in relation to glenoid is seen which can be seen associated with full-thickness rotator cuff tendon rupture. Moderate acromioclavicular joint and glenohumeral joint osteoarthritic changes are seen. No suspicious bony lesions. Visualized ribs appear intact. Soft tissues: Small calcifications are noted adjacent to greater tuberosity of humeral head concerning for calcific tendinitis. IMPRESSION: 1. No acute left shoulder fracture or dislocation. Moderate shoulder joint osteoarthritis. 2. Superior migration of humeral head which can be seen associated with rotator cuff tendon rupture. 3. Suggestion of calcific tendinitis involving distal rotator cuff tendons at their insertion on greater trochanter. Dictated by: Brian Solomon M.D. on 11/01/2024 at 15:31 Approved by: Brian Solomon M.D. on 11/01/2024 at 15:32
== END ==
PROVIDERS: PCP Family Medicine; Referring Provider Family Medicine; Visit Provider Family Medicine
DX: M75.02 Adhesive capsulitis of left shoulder (principal); M19.012 Primary osteoarthritis, left shoulder; M25.512 Pain in left shoulder
CPT/HCPCS: 73030

== ENCOUNTER → 2024-11-08 06:57 | Outpatient (CLI) | payer MEDICARE, OTHER, SELFPAY ==
[2024-11-08 07:52] LABS: Add Manual Diff / Slide Review NO; Basophils Absolute Auto 0 /uL (0-100); Basophils Percent Auto 0.3 % (0-2); Eosinophils Absolute Auto 200 /uL (0-450); Eosinophils Percent Auto 3.1 % (2-4); Hematocrit 43.4 % (41-53); Hemoglobin 14.9 g/dL (13.5-17.5); Lymphocytes Absolute Auto 1300 /uL (1100-4500); Lymphocytes Percent Auto 19.3 % (25-40); Mean Corpuscular HGB Conc 34.3 % (30-36); Mean Corpuscular Hemoglobin 32.1 PG (26-34); Mean Corpuscular Volume 93.8 fL (80-100); Monocytes Absolute Auto 500 /uL (0-900); Monocytes Percent Auto 7.3 % (3-14); Neutrophils Absolute Auto 4900 /uL (1500-7000); Platelet Count 237 X10^3/uL (150-400); Red Blood Cell Count 4.63 X10^6/uL (4.5-5.9); Red Cell Distribution Width 13.2 % (11.6-14.8); White Blood Cell Count 6.9 X10^3/uL (4.5-11.0)
[2024-11-08 08:34] LABS: Alanine Aminotransferase 28 IU/L (<50); Albumin 4.2 g/dL (3.5-5.0); Alkaline Phosphatase 58 U/L (38-126); Aspartate Aminotransferase 30 IU/L (17-59); BUN Creatinine Ratio 29.4 (6-22); Bilirubin Total 0.6 mg/dL (0.2-1.3); Blood Urea Nitrogen 25 mg/dL (9-20); Calcium 9.3 mg/dL (8.4-10.2); Carbon Dioxide 23 mmol/L (22-32); Chloride 108 mmol/L (98-107); Cholesterol 129 mg/dL (140-199); Estimated Glomerular Filt Rate > 60 mL/min (>60); Globulin 2.1 g/dL (1.7-4.1); Glucose 142 mg/dL (70-99); HDL Cholesterol 60 mg/dL (40-60); HEMOLYSIS < 15 (0-50); LDL Cholesterol Calculated 54 mg/dL (<100); Potassium 4.6 mmol/L (3.4-5.1); Sodium 140 mmol/L (137-145); Total Protein 6.3 g/dL (6.3-8.2); Triglycerides 77 mg/dL (35-150)
[2024-11-08 09:03] LABS: Prostate Specific Antigen Scrn 3.57 ng/mL (0.1-4.0)
[2024-11-08 09:04] LABS: Hemoglobin A1C% w Est Avg Glu 6.3 % (4.0-6.0)
== END ==
PROVIDERS: PCP Family Medicine; Referring Provider Family Medicine; Visit Provider Family Medicine
DX: E11.9 Type 2 diabetes mellitus without complications (principal); Z12.5 Encounter for screening for malignant neoplasm of prostate; E78.2 Mixed hyperlipidemia; I10 Essential (primary) hypertension
CPT/HCPCS: 36415; 80053; 80061; 83036; 85025; G0103

== ENCOUNTER → 2025-03-27 12:20 | Outpatient (CLI) | payer MEDICARE, OTHER, SELFPAY ==
--- NOTE | 2025-03-27 12:21 | DI.ECHO.S_ITS ---
[facility] +---------+ [facility] : : [address] : : [place] : : [id number] : : Phone: [phone] Echocardiogram Report + + :Name: JOSE WALSH Study Date: 03/27/2025 Height: 67 in : :Hospital ReadingLocation: Weight: 156 lb : : Gender: Male BSA: 1.8 m2 : :: 1960 Age: 65 yrs BP: 152/77 mmHg: :Reason For Study: 1 YEAR FOLLOW UP, AORTIC STENOSIS : :Ordering Physician: ITMMY, : :BILL Performed By: Willow Herrera : :Referring: BILL WARNER : + + Interpretation Summary 1) Normal left ventricular size, wall motion, and systolic function (EF 60- 65%). 2) Mildly enlarged right ventricle with normal function. 3) There is moderate aortic stenosis (valve area 1.1cm2, mean gradient 38mmHg, severity ratio 0.3). 4) There is moderate aortic regurgitation. 5) Compared to the Echo done 05/05/2024, no significant change. Procedure: A two-dimensional transthoracic echocardiogram with color flow and Doppler was performed. The study quality was technically adequate. Comparison is made with the echocardiogram of 05/05/2024. Left Ventricle: There is mild concentric left ventricular hypertrophy. The left ventricle is normal in size. The ejection fraction is estimated to be 60- 65%. Grade I diastolic dysfunction with normal left atrial pressure. Right Ventricle: The right ventricle is mildly dilated. The right ventricular systolic function is normal. Atria: The left atrium is moderately dilated. Right atrial size is normal. There is no Doppler evidence for an interatrial shunt. Mitral Valve: The mitral valve leaflets appear to open well. There is mild mitral regurgitation. Aortic Valve: Aortic valve is difficult to viusalize, best appreciated in subcostal window. The aortic valve is severely calcified. The peak aortic velocity is 4.06 m/sec. The aortic valve mean gradient is 38 mmHg. The calculated aortic valve area is 1.1 cm2. There is moderate aortic regurgitation. Tricuspid Valve: The tricuspid valve leaflets are thin and pliable. There is a trace or physiologic amount of tricuspid regurgitation. Pulmonary artery pressures cannot be estimated because of the lack of a measurable TR jet velocity but the IVC suggests a CVP of around 3 mmHg. Pulmonic Valve: The pulmonic valve is not well visualized. There is mild pulmonic regurgitation. Great Vessels: The aortic root is not well visualized. The dimensions of the ascending aorta are normal. The IVC is of normal diameter and collapses greater than 50% with a sniff. This suggests a low right atrial pressure of 3 mm Hg. Pericardium/ Pleura There is no pericardial effusion. There is no pleural effusion. MMode/2D Measurements & Calculations LVIDd: 5.2 cm LVOT diam: 2.2 cm LVIDs: 3.4 cm asc Aorta Diam: 3.3 cm FS: 35.5 % Ao Arch Diam (Prox Trans): 2.9 cm IVSd: 1.0 cm LVPWd: 1.1 cm LV akins. diameter/BSA (cm/m^2): 2.9 LV sys. diameter/BSA (cm/m^2): 1.9 LA A2 area: 24.4 cm2 RA long axis: 4.8 cm LA A4 area: 23.2 cm2 RA area: 16.4 cm2 LA length (vol): 5.8 cm RA vol: 47.7 ml LA vol: 83.0 ml RA : 26.2 ml/m2 LA vol index: 45.6 ml/m2 IVC diam: 1.7 cm RVD1 (basal): 4.1 cm RVD2 (mid): 3.4 cm TAPSE: 2.1 cm Doppler Measurements & Calculations Ao V2 max: 406.6 cm/sec LVOT Max Eric: 110.8 cm/sec Ao V2 mean: 294.1 cm/sec LV V1 max P.9 mmHg Ao max P.2 mmHg LV V1 VTI: 27.3 cm Ao mean P.4 mmHg FRANNIE(I,D): 1.1 cm2 Ao V2 VTI: 91.1 cm FRANNIE(V,D): 1.0 cm2 sev ratio: 0.30 FRANNIE indexed to BSA (cm^2/m^2): 0.63 AI P1/2t: 342.7 msec AI dec slope: 415.6 cm/sec2 MV E max eric: 81.5 cm/sec PA V2 max: 116.9 cm/sec MV A max eric: 58.0 cm/sec PA V2 mean: 76.3 cm/sec MV E/A: 1.4 PA mean P.7 mmHg Med Peak E' Eric: 7.1 cm/sec PA pr(Accel): 30.2 mmHg E/E' med: 11.5 Lat Peak E' Eric: 9.4 cm/sec E/E' lat: 8.6 E/e' average: 10.1 MV dec time: 0.18 sec SVLVOT): 104.6 ml Reading Physician:04:37 PM
== END ==
LOC: ECHO 12:21
PROVIDERS: Family Provider Family Medicine; PCP Family Medicine; Referring Provider Family Medicine; Visit Provider Family Medicine
DX: I35.0 Nonrheumatic aortic (valve) stenosis (principal); I51.7 Cardiomegaly; I35.1 Nonrheumatic aortic (valve) insufficiency
CPT/HCPCS: 93306

== ENCOUNTER → 2025-04-17 07:02 | Outpatient (CLI) | payer MEDICARE, OTHER, SELFPAY ==
[2025-04-17 07:54] LABS: Hemoglobin A1C% w Est Avg Glu 6.6 % (4.0-6.0)
[2025-04-17 08:03] LABS: Alanine Aminotransferase 25 IU/L (<50); Albumin 4.3 g/dL (3.5-5.0); Albumin Globulin Ratio 1.9 (1.0-2.8); Alkaline Phosphatase 53 U/L (38-126); Blood Urea Nitrogen 21 mg/dL (9-20); Calcium 9.5 mg/dL (8.4-10.2); Carbon Dioxide 25 mmol/L (22-32); Chloride 103 mmol/L (98-107); Estimated Glomerular Filt Rate > 60 mL/min (>60); Globulin 2.3 g/dL (1.7-4.1); Glucose 151 mg/dL (70-99); HEMOLYSIS < 15 (0-50); Potassium 4.4 mmol/L (3.4-5.1); Sodium 137 mmol/L (137-145); Total Protein 6.6 g/dL (6.3-8.2)
== END ==
PROVIDERS: Family Provider Family Medicine; PCP Family Medicine; Referring Provider Family Medicine; Visit Provider Family Medicine
DX: E11.9 Type 2 diabetes mellitus without complications (principal)
CPT/HCPCS: 36415; 80053; 83036

== ENCOUNTER → 2025-05-11 09:10 | Outpatient (CLI) | payer MEDICARE, OTHER, SELFPAY ==
[2025-05-11 09:37] LABS: Hematocrit 42.6 % (41-53); Hemoglobin 14.5 g/dL (13.5-17.5); Mean Corpuscular HGB Conc 34.1 % (30-36); Mean Corpuscular Hemoglobin 31.5 PG (26-34); Mean Corpuscular Volume 92.6 fL (80-100); Platelet Count 199 X10^3/uL (150-400)
[2025-05-11 10:05] LABS: Blood Urea Nitrogen 21 mg/dL (9-20); Calcium 9.4 mg/dL (8.4-10.2); Carbon Dioxide 23 mmol/L (22-32); Chloride 108 mmol/L (98-107); Cholesterol 143 mg/dL (140-199); Estimated Glomerular Filt Rate > 60 mL/min (>60); Glucose 136 mg/dL (70-99); HDL Cholesterol 72 mg/dL (40-60); HEMOLYSIS < 15 (0-50); Potassium 4.4 mmol/L (3.4-5.1); Sodium 139 mmol/L (137-145); Triglycerides 126 mg/dL (35-150)
== END ==
PROVIDERS: Family Provider Family Medicine; PCP Family Medicine; Referring Provider Internal Medicine Cardiovascular Disease; Visit Provider Internal Medicine Cardiovascular Disease
DX: Z00.00 Encounter for general adult medical examination without abnormal findings (principal); E78.5 Hyperlipidemia, unspecified; I10 Essential (primary) hypertension
CPT/HCPCS: 36415; 80048; 80061; 84153; 84154; 85027